=== PATIENT | female | born 1960 | race Two or more races ===

== ENCOUNTER 2024-10-27 07:34 | Outpatient (CLI) | payer OTHER | END 2024-10-27 07:37 | disposition home or self-care (01) | LOC: EDBD 07:34 → NUCLEAR 07:34 | PROVIDERS: ATTEND Internal Medicine Hematology & Oncology | DX: C50.911 Malignant neoplasm of unspecified site of right female breast (principal) | CPT/HCPCS: 78815; A9552 ==

== ENCOUNTER → 2025-07-14 | Outpatient (CLI) | payer OTHER | END | disposition home or self-care (01) | LOC: NUCLEAR 07:30 | PROVIDERS: ATTEND Internal Medicine Hematology & Oncology | DX: C50.211 Malignant neoplasm of upper-inner quadrant of right female breast (principal) | CPT/HCPCS: 78815; A9552 ==

== ENCOUNTER 2025-08-09 11:28 | Outpatient (CLI) | payer OTHER | END 2025-08-09 11:29 | disposition home or self-care (01) | LOC: NUCLEAR 11:28 | PROVIDERS: ATTEND Internal Medicine Endocrinology, Diabetes & Metabolism | DX: M81.0 Age-related osteoporosis without current pathological fracture (principal) ==